=== PATIENT | male | born 1975 | race Caucasian/White ===

== ENCOUNTER 2016-10-04 06:00 | Observation (INO) | payer MEDICAID, OTHER ==
[2016-10-04] MEDS ORDERED: NS 1,000 ML IV ONE (06:18)
[2016-10-04] MEDS ORDERED: ONDANSETRON 4 MG/2 ML VIAL IVP ONE ×2 (06:18→08:00)
[2016-10-04 06:43] LABS: ADD MORPH? NO; ATYPICAL LYMPHOCYTE FLAG 0 (0-99); FRAGMENT RBC FLAG 0 (0-99); HEMATOCRIT 55.2 % (40.0-51.0); HEMOGLOBIN 19.7 g/dL (13.7-17.5); LIPEMIA HEMOLYSIS FLAG 90 (0-99); MEAN CELL HEMOGLOBIN 30.4 pg (27.9-34.1); MEAN CELL HEMOGLOBIN CONCENTR. 35.7 g/dL (32.4-36.7); MEAN CELL VOLUME 85.1 fL (81.5-99.8); MEAN PLATELET VOLUME 9.9 fL (8.7-11.7); PLATELET CLUMPS FLAG 20 (0-99); PLATELET COUNT 281 10^3/uL (150-400); RED BLOOD CELL COUNT 6.49 10^6/uL (4.40-6.38); RED CELL DISTRIBUTION WIDTH 12.4 % (11.5-15.2)
[2016-10-04 06:54] LABS: ALANINE AMINOTRANSFERASE 54 IU/L (21-72); ALBUMIN 5.5 g/dL (3.5-5.0); ALKALINE PHOSPHATASE 91 IU/L (38-126); ANION GAP 22 mEq/L (8-16); ASPARTATE AMINOTRANSFERASE 35 IU/L (17-59); BILIRUBIN,TOTAL 1.3 mg/dL (0.1-1.4); BILIRUBIN-CONJUGATED 0.6 mg/dL (0.0-0.5); BILIRUBIN-UNCONJUGATED 0.7 mg/dL (0.0-1.1); CALCIUM 10.8 mg/dL (8.5-10.4); CARBON DIOXIDE 16 mEq/l (22-31); CHLORIDE 104 mEq/L (97-110); CREATININE 0.9 mg/dL (0.7-1.3); GLOMERULAR FILTRATION RATE > 60; GLUCOSE 181 mg/dL (70-100); LITHIUM 0.8 mEq/L (0.6-1.2); POTASSIUM 3.1 mEq/L (3.5-5.2); SODIUM 142 mEq/L (134-144); TOTAL PROTEIN 9.2 g/dL (6.3-8.2)
--- NOTE | 2016-10-04 06:54 | EDPHY ---
H & P Stated Complaint: N/V, abd pain - Personal History Tetanus Vaccine Date: less than 10 years - Medical/Surgical History Hx Asthma: No Hx Chronic Respiratory Disease: No Hx Diabetes: No Hx Cardiac Disease: No Hx Renal Disease: No Hx Cirrhosis: No Hx Alcoholism: No Hx HIV/AIDS: No Hx Splenectomy or Spleen Trauma: No Other PMH: Bipolar,appy, torn achilles tendon L leg - Social History Smoking Status: Current every day smoker <Marquis Ho - Last Filed: 10/04/16 07:02> <Cm Echavarria - Last Filed: 10/04/16 12:39> Time Seen by Provider: 10/04/16 06:17 HPI/ROS: Chief Complaint: Nausea, vomiting, abdominal pain HPI: 41-year-old male presenting with 2 days of nausea, vomiting and abdominal pain. Patient states the pain is primarily in the left hand side. It is constant with no significant aggravating or alleviating factors. No fevers or chills. Has multiple episodes of nausea and vomiting is been able to keep any fluids down. Also having some diarrhea. No melena or hematochezia. No hematemesis. Does not have a history of the same. Has a past medical history of bipolar disorder does take lithium. Has been compliant with his medications. Denies any other ingestions. ROS: 10 point Review of Systems is negative except as noted in the HPI. PMH: Bipolar disorder Medications: [place] Allergies: No known drug allergies Social History: No smoking, no alcohol, no recreational drug use Family History: non-contributory Physical Exam: Gen: Awake, Alert, No Distress HEENT: Nose: no rhinorrhea Eyes: PERRLA, EOMI Mouth: Moist mucosa Neck: Supple, no JVD Chest: nontender, lungs clear to auscultation Heart: S1, S2 normal, no murmur Abd: Soft, patient has left lower quadrant greater than left upper quadrant tenderness to palpation with voluntary guarding, no right-sided abdominal tenderness Back: no CVA tenderness, no midline tenderness Ext: no edema, non-tender Skin: no rash Neuro: CN II-XII intact, Sensation grossly intact, Strength 5/5 in bilateral upper and lower extremities (Marquis Ho) Constitutional: Initial Vital Signs Temperature (C) 36.2 C 10/04/16 06:12 Heart Rate 104 H 10/04/16 06:12 Respiratory Rate 28 H 10/04/16 06:12 Blood Pressure 123/97 H 10/04/16 06:12 O2 Sat (%) 99 10/04/16 06:12 O2 Delivery Mode Room Air Allergies/Adverse Reactions: No Known Allergies Allergy (Verified 10/04/16 06:03) Home Medications: Medication Instructions Recorded NK [No Known Home Meds] 10/04/16 Medical Decision Making <Marquis Ho - Last Filed: 10/04/16 07:02> - Diagnostics Imaging: I viewed and interpreted images myself <Cm Echavarria - Last Filed: 10/04/16 12:39> - Diagnostics Imaging Results: Imaging Impressions Abdomen CT 10/04/16 06:18 Impression: Fluid-filled distention of small bowel, colon, and stomach suggestive of enteritis, without significant bowel dilatation. The study was performed as an emergency on-call case and discussed by telephone with Dr. Hamilton Schmitt at 7:52 AM hrs. The final interpretation is concordant with the original communication. ED Course/Re-evaluation: Leukocytosis noted. Patient is signed out to Dr. Echavarria pending CT scan of the abdomen and pelvis. (Marquis Ho) Other Provider: I assumed care of the patient at 7 o'clock in the morning awaiting CT scan of the abdomen pelvis. CT scan of the abdomen pelvis demonstrates changes consistent with gastroenteritis. No diverticulitis, perforation abscess or other acute finding or noted. I re-evaluated the patient at 8:30 a.m.. He continues to have ongoing vomiting. He is unable to tolerate any oral rehydration. The patient will require admission to the hospital. I have ordered a GI panel PCR on the patient 's stool which has yet to be provided. Consultation is made with the hospitalist service at 8:35 a.m.. The patient will be admitted for observation status to the [facility]. The patient will be admitted to the hospital by Dr. Jairo Gracia (Cm Echavarria) - Data Points Laboratory Results: Laboratory Results 10/04/16 06:30 10/04/16 06:30 10/04/16 10/04/16 06:30 06:30 WBC 17.45 10^3/uL H 10^3/uL (3.80-9.50) RBC 6.49 10^6/uL H 10^6/uL (4.40-6.38) Hgb 19.7 g/dL H g/dL (13.7-17.5) Hct 55.2 % H % (40.0-51.0) MCV 85.1 fL fL (81.5-99.8) MCH 30.4 pg pg (27.9-34.1) MCHC 35.7 g/dL g/dL (32.4-36.7) RDW 12.4 % % (11.5-15.2) Plt Count 281 10^3/uL 10^3/uL (150-400) MPV 9.9 fL fL (8.7-11.7) Neut % (Auto) Not Reported Lymph % (Auto) Not Reported [place] % (Auto) Not Reported Eos % (Auto) Not Reported Baso % (Auto) Not Reported Nucleat RBC Rel Count 0.0 % % (0.0-0.2) Absolute Neuts (auto) Not Reported Absolute Lymphs (auto) Not Reported Absolute Monos (auto) Not Reported Absolute Eos (auto) Not Reported Absolute Basos (auto) Not Reported Absolute Nucleated RBC 0.00 10^3/uL 10^3/uL (0-0.01) Immature Gran % Not Reported Seg Neutrophils % 44 % % Band Neutrophils % 37 % % Lymphocytes % 9 % % Monocytes % 9 % % Immature Gran # Not Reported Absolute Seg Neuts 7.68 10^/uL H 10^/uL (1.70-6.50) Absolute Band Neuts 6.46 10^3/uL H 10^3/uL (0.00-0.70) Absolute Lymphocytes 1.57 10^3/uL 10^3/uL (1.00-3.00) Absolute Monocytes 1.57 10^3/uL H 10^3/uL (0.30-0.80) RBC/WBC/PLT Morphology NORMAL (NORMAL) Platelet Estimate ADEQUATE (ADEQ) Sodium 142 mEq/L mEq/L (134-144) Potassium 3.1 mEq/L L mEq/L (3.5-5.2) Chloride 104 mEq/L mEq/L (97-110) Carbon Dioxide 16 mEq/l L mEq/l (22-31) Anion Gap 22 mEq/L H mEq/L (8-16) BUN 24 mg/dL H mg/dL (7-23) Creatinine 0.9 mg/dL mg/dL (0.7-1.3) Estimated GFR > 60 Glucose 181 mg/dL H mg/dL (70-100) Calcium 10.8 mg/dL H mg/dL (8.5-10.4) Phosphorus 3.3 mg/dL mg/dL (2.5-4.5) Total Bilirubin 1.3 mg/dL mg/dL (0.1-1.4) Conjugated Bilirubin 0.6 mg/dL H mg/dL (0.0-0.5) Unconjugated Bilirubin 0.7 mg/dL mg/dL (0.0-1.1) AST 35 IU/L IU/L (17-59) ALT 54 IU/L IU/L (21-72) Alkaline Phosphatase 91 IU/L IU/L (38-126) Total Protein 9.2 g/dL H g/dL (6.3-8.2) Albumin 5.5 g/dL H g/dL (3.5-5.0) Lipase 78.0 IU/L IU/L (23-300) [place] 0.8 mEq/L mEq/L (0.6-1.2) Medications Given: Discontinued Medications Sodium Chloride (Ns) 1,000 mls @ 0 mls/hr IV ONCE ONE PRN Reason: [place] Stop: 10/04/16 06:19 Last Admin: 10/04/16 06:35 Dose: 1,000 mls Ketorolac Tromethamine (Toradol) 15 mg IVP EDNOW ONE Stop: 10/04/16 08:01 Last Admin: 10/04/16 08:01 Dose: 15 mg Ondansetron HCl (Zofran) 4 mg IVP EDNOW ONE Stop: 10/04/16 06:19 Last Admin: 10/04/16 06:36 Dose: 4 mg Ondansetron HCl (Zofran) 4 mg IVP EDNOW ONE Stop: 10/04/16 08:01 Last Admin: 10/04/16 08:01 Dose: 4 mg Departure <Marquis Ho - Last Filed: 10/04/16 07:02> <Cm Echavarria - Last Filed: 10/04/16 12:39> - Departure Disposition: [facility] Clinical Impression: Dehydration, Acute gastroenteritis Condition: Good Referrals: NONE *PRIMARY CARE P,. [Primary Care Provider] - As per Instructions
[2016-10-04 06:56] LABS: ADD DIFF? YES; ADD SCAN? NO; LEFT SHIFT FLG 100 (0-99)
[2016-10-04] MEDS ORDERED: IOPAMIDOL (ISOVUE-300) 100 ML BTL IV ONE (06:59)
[2016-10-04 07:47] LABS: PLATELET ESTIMATE ADEQUATE (ADEQ)
[2016-10-04] MEDS ORDERED: ONDANSETRON 4 MG/2 ML VIAL ONE (07:50)
[2016-10-04] MEDS ORDERED: KETOROLAC 15 MG/1 ML SDV ONE (07:51)
[2016-10-04] MEDS ORDERED: KETOROLAC 15 MG/1 ML SDV IVP ONE (08:00)
[2016-10-04 09:17] VITALS: BP 120/85; PULSE 92; RESP 18; TEMP 98.8; O2SAT 94
[2016-10-04] MEDS ORDERED: PROTOCOL POTASSIUM 1 DOSE MISC PRN (10:20)
[2016-10-04] MEDS ORDERED: NS 1,000 ML IV SCH (10:30)
[2016-10-04] MEDS ORDERED: ONDANSETRON DISINTEGRATING 4 MG TAB PO PRN (11:02)
[2016-10-04] MEDS ORDERED: IBUPROFEN 200 MG TAB PO PRN (11:02)
[2016-10-04] MEDS ORDERED: ONDANSETRON 4 MG/2 ML VIAL IVP PRN (11:02)
[2016-10-04] MEDS ORDERED: ACETAMINOPHEN 325 MG TAB PO PRN (11:02)
[2016-10-04] MEDS ORDERED: NICOTINE 21 MG/24 HR PATCH TD SCH (11:30)
--- NOTE | 2016-10-04 11:57 | GHP ---
[f rep st] HISTORY AND PHYSICAL DATE OF ADMISSION: 10/04/2016 CHIEF COMPLAINT: Persistent vomiting and nausea, with associated back pain. HISTORY OF PRESENT ILLNESS: The patient is a 41-year-old male with a history of bipolar disorder, history of an appendectomy, and cannibas use, who presented to the emergency room with nausea and vomiting. He has not been able to eat or drink for approximately 2 days. He has had persistent bouts of diarrhea. This is a chronic condition for him but is more frequent. He describes having some hematemesis. He has had 15-16 episodes of vomiting. He does not have any fever. He says he has chronic chills. No one is ill at home. He has had no recent travel. He has not recently been on antibiotics. He uses cannabis daily. He uses approximately a bowl or 2 a day. During my interview, he is complaining of severe back pain in the left lower back area. He also is describing that he is having some associated chest tightness. What has helped his symptoms is the medications he received in the emergency room. He thinks a warm shower may have helped with his nausea and vomiting. During my interview, he is complaining of ongoing left low back pain. PAST MEDICAL HISTORY: 1. Bipolar disorder, on lithium. 2. History of chronic narcotic use. Has been sober for 6 years. PAST SURGICAL HISTORY: 1. Appendectomy in July of 2012. 2. Status post debridement and fasciotomy for a left forearm impending compartment syndrome. SOCIAL HISTORY: He has been x8 years. He has 3 children. He works at [employer]. He smokes approximately a pack a day of cigarettes for the past 10-15 years. He has had a problem with cocaine and crack and alcohol use. He has quit all of these 6 years ago. He uses cannabis daily and describes using a bowl or 2. FAMILY HISTORY: Both of his parents have issues with narcotic dependency. ALLERGIES: No known allergies. MEDICATIONS: [place] 1200 mg p.o. q.h.s. REVIEW OF SYSTEMS: A 10-point review of systems was performed and was negative , other than pertinent positives in HPI and Past Medical History. PHYSICAL EXAM: GENERAL: The patient is a 41-year-old male who appears uncomfortable during my interview, but appears also to be in good health. VITAL SIGNS: Blood pressure is 120/85. Heart rate is 92. Respiratory rate is 18. O2 saturation on room air is 94%. Temperature is 37.1 Celsius. EYES: Pupils are equal and reactive. EOMs are intact. No conjunctival injection noted. ENT: Normal ears, hearing intact. Normal lips and teeth. Oral airway is intact. NECK: Trachea is in midline. CARDIOVASCULAR: He is in a regular rate and rhythm. No murmurs, rubs, or gallops noted. CHEST/LUNGS: Normal respiratory effort, without wheezing, rales or rhonchi. ABDOMEN: Soft, nontender. SKIN: No rashes or ulcer noted. Warm, dry and intact. He has multiple tattoos. MUSCULOSKELETAL: He is moving his upper and lower extremities without difficulty. PSYCHIATRIC: He is alert and oriented, very anxious, appears to have normal judgment, insight, and normal memory. LABORATORY DATA: Data reviewed. A CBC was performed. White blood cell count is 17.45, RBC 6.49. Hemoglobin is 19.7. Hematocrit is 55.2. Chemistry: Sodium is 142, potassium 3.1, CO2 of 16, BUN of 24, creatinine of 0.9, glucose of 181, calcium of 10.8. [place] level was checked, which is 0.8. A CT of the abdomen was performed, which showed fluid-filled distention of small bowel, colon, and stomach, suggestive of enteritis without significant bowel dilation. ASSESSMENT/PLAN: 1. Likely viral gastroenteritis. Will give him supportive treatment with IV fluids and antiemetics. 2. Left lower back pain. Will check a urinalysis (he has flank pain during my evaluation) for further evaluation. I explained to him that I would not order narcotics. Anti-inflammatories will be ordered. Will ask Physical Therapy to see him. 3. Episode of chest discomfort. Will check a troponin. 4. Dehydration with associated polycythemia. Will hydrate and follow. 5. Metabolic acidosis. Secondary to dehydration. 6. Hyperglycemia, stress induced. 7. Hypokalemia. Placed on the protocol. 8. Nicotine dependence. Nicotine patch ordered. 9. Cannabis use. He could have an underlying hyperemesis syndrome. Reviewed this with the patient, that frequent use of cannabis daily can result in chronic vomiting. 10. Elevated calcium. Will recheck. 11. Length of stay: He will likely require less than a 2-midnight stay, which will make him observation status. This can be re-evaluated if needed. CODE STATUS: Full. /[id number]/MODL MTDD
[2016-10-04] MEDS ORDERED: POTASSIUM CL 10 MEQ TAB PO ONE (12:48)
[2016-10-04] MEDS ORDERED: CALCIUM CARBONATE 500 MG CHEWABLE TAB PO PRN (14:04)
--- NOTE | 2016-10-04 16:45 | PDDCSUM ---
Discharge Summary Discharge Summary: Dates of service: admit/discharge 10/04/16 Procedures: abd ct consultations: none Hospital course by problem: # n/v: no further episodes of vomiting since 6am, abd CT personally reviewed and noted to be suggestive of acute enteritis without other acute issues. Suspect viral in nature. Tolerating diet without recurrent sxs. No abd pain. Will dc home with prn zofran and have patient f/u with pcp. # polycythemia: in setting of significant n/v and likely related to same, has gotten IVF and would recommend f/u with PCP for re eval in coming week # agma: in setting of n/v and hypovolemia and likely related to same, non toxic appearing, f/u for routine lab eval in coming week # bipolar: continue lithium # hx of opiate abuse: in remission Dc home > 35 min spent in dc more than half in coordination of care Patient new to my care. Care plan reviewed with DANA Patterson. Old records reviewed and summarized as above.
== END 2016-10-04 17:00 | disposition home or self-care (01) ==
LOC: F1N 10:10
PROVIDERS: ADMIT Internal Medicine; ATTEND Internal Medicine
DX: R11.2 Nausea with vomiting, unspecified (principal); D75.1 Secondary polycythemia; F31.9 Bipolar disorder, unspecified; F12.10 Cannabis abuse, uncomplicated; F11.21 Opioid dependence, in remission; F17.210 Nicotine dependence, cigarettes, uncomplicated
CPT/HCPCS: 74177; G0378; 96374; J1885; J2405; Q9967

== ENCOUNTER 2018-09-18 09:03 | Emergency (ER) | payer OTHER ==
[2018-09-18] MEDS ORDERED: ASPIRIN 81 MG CHEWABLE TAB PO ONE (09:14)
[2018-09-18] MEDS ORDERED: NS 500 ML IV ONE (09:14)
--- NOTE | 2018-09-18 09:15 | EDPHY ---
H & P Stated Complaint: cp Time Seen by Provider: 09/18/18 09:11 HPI/ROS: HPI: This is a 43-year-old male who presents with Chief Complaint: Chest pain Location: Anterior left-sided chest Quality: Pain Duration: 4 days Signs and Symptoms: no shortness of breath at rest, + shortness of breath on exertion, no cough, no chest pain, no palpitations, no lower extremity edema, no wheezing, no orthopnea, no paroxysmal nocturnal dyspnea, no fever, no injury/ trauma, no hemoptysis, no carpal pedal spasms, + cardiac awareness Timing: Acute, intermittent episodes occurring approximately 5-6 times per day Severity: [id number] Context: Patient is a heavy tobacco user, previous alcohol/drug abuser with sobriety for the last 7 years, 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 Patient reports that nothing makes the pain better or worse. Patient is right-hand dominant but reports that the pain is reproducible when he touches the left side of his chest. States that this feels different than his "stomach issues he had when he drank every day." No recent foreign travel or long distance travel. Patient does complain of cardiac awareness and anxiety. Father hx CABG in late 40s. Denies fever, cough , shortness of breath, lower extremity edema. Patient reports that he decided to come into the emergency room today for further evaluation as the left-sided chest pain was "worse" this morning when compared to the other few days. Modifying Factors: None Comment: ROS: A comprehensive 10 system review of systems is otherwise negative aside from elements mentioned in the history of present illness. MEDICAL/SURGICAL/SOCIAL HISTORY: Medical history: Bipolar, drug/ETOH abuse Surgical history: Appendectomy, left Achilles tendon repair Social history: Has children. Employed. CONSTITUTIONAL: Slightly anxious, polite and cooperative, middle-aged white male, awake and alert, no obvious distress HEENT: Atraumatic and normocephalic, PERRL, EOMI. Nares patent; no rhinorrhea; no nasal mucosal edema. Tympanic membranes clear. Oropharynx clear, no exudate and moist pink mucosa. Airway patent. No lymphadenopathy. No meningismus. Cardiovascular: Normal S1/S2, regular rate, regular rhythm, without murmur rub or gallop. PULMONARY/CHEST: Symmetrical and reproducible anterior generalized chest tenderness. Clear to auscultation bilaterally. Good air movement. No accessory muscle usage. ABDOMEN: Soft, nondistended, nontender, no rebound, no guarding, no peritoneal signs, no masses or organomegaly. No CVAT. EXTREMITIES: 2/2 pulses, strength 5/5, no deformities, no clubbing, no cyanosis or edema. Negative Homans sign. NEUROLOGICAL: no focal neuro deficits. GCS 15. SKIN: Warm and dry, no erythema. no rash. Good capillary refill. Source: Patient Exam Limitations: No limitations - Personal History Current Tetanus/Diphtheria Vaccine: Yes Current Tetanus Diphtheria and Acellular Pertussis (TDAP): Yes Tetanus Vaccine Date: less than 10 years - Medical/Surgical History Hx Asthma: No Hx Chronic Respiratory Disease: No Hx Diabetes: No Hx Cardiac Disease: No Hx Renal Disease: No Hx Cirrhosis: No Hx Alcoholism: Yes Hx HIV/AIDS: No Hx Splenectomy or Spleen Trauma: No Other PMH: Bipolar,appy, torn achilles tendon L leg, drug/ETOH abuse - Social History Smoking Status: Current every day smoker Constitutional: Initial Vital Signs Temperature (C) 36.5 C 09/18/18 09:06 Heart Rate 67 09/18/18 09:06 Respiratory Rate 16 09/18/18 09:06 Blood Pressure 147/112 H 09/18/18 09:06 O2 Sat (%) 97 09/18/18 09:06 O2 Delivery Mode Room Air Allergies/Adverse Reactions: No Known Allergies Allergy (Verified 09/18/18 09:05) Home Medications: Medication Instructions Recorded Binger Carbonate [Binger 1,200 mg PO HS 10/04/16 Carbonate Cap 300 mg (*)] Atorvastatin Calcium 09/18/18 Medical Decision Making - Diagnostics EKG Interpretation: 12 lead EKG: Indication: Chest pain Rhythm: Normal sinus rhythm [place]: Normal Intervals: Normal QRS: Incomplete right bundle branch block ST segments: Normal INTERPRETATION: Normal EKG The 12 lead EKG was interpreted by myself and with attending. Imaging Results: Imaging Impressions Chest X-Ray 09/18/18 09:15 Impression: Minimal central peribronchial thickening, similar to the prior study, which could be related to bronchitis/airways disease. ED Course/Re-evaluation: Vital signs reviewed and show mildly elevated systolic and diastolic pressures. Placed on manager psychiatry. EKG my read shows normal sinus rhythm with a rate of 66 beats per minute with incomplete right bundle branch block but no acute ischemic changes. IV access, laboratory studies, chest x-ray ordered Given aspirin upon arrival. 0938: Notified by [facility] that troponin 0.00 0942: Chest x-ray my read shows no opacity, no effusion, no pneumothorax, no widened mediastinum. Radiology read shows + Minimal central peribronchial thickening, similar to the prior study, which could be related to bronchitis/ airways disease. 0943: Laboratory studies reviewed and show WBC 11 K, no anemia, no platelet dysfunction, no cake apathy, electrolyte imbalance, no signs of pancreatitis, no elevated liver enzymes, no acute kidney injury, no VTE. Lipase is mildly elevated but no epigastric pain. History of alcohol abuse but sober x7 years. 1012: Reassessed patient who reports that he is completely pain-free. Chest pain started 4 days ago and 2nd troponin not needed. He reports that this is likely stress induced and asking to be discharged home. Reports that he will follow up with his primary care provider for risk factor modification including fasting lipid panel. He reports that he and his significant other are going to stop smoking. I did give him a work excuse for the next 2 days. 1015: Vital signs stable at discharge HEART score=1; low risk I reviewed the share decision making instrument with the patient, including risk of MACE, and the patient (and family) that are in agreement with the chosen disposition. This patient was seen under the supervision of my secondary supervising physician. I evaluated care for this patient with attending. Differential Diagnosis: Chest pain including but not limited to myocardial ischemia, pulmonary embolus, chest wall pain, pleural inflammation and pulmonary infectious causes. - Data Points Laboratory Results: Laboratory Results 09/18/18 09:24 09/18/18 09:24 09/18/18 09/18/18 09/18/18 09:25 09:24 09:24 WBC RBC Hgb Hct MCV MCH MCHC RDW Plt Count MPV Neut % (Auto) Lymph % (Auto) [place] % (Auto) Eos % (Auto) Baso % (Auto) Nucleat RBC Rel Count Absolute Neuts (auto) Absolute Lymphs (auto) Absolute Monos (auto) Absolute Eos (auto) Absolute Basos (auto) Absolute Nucleated RBC Immature Gran % Immature Gran # PT 12.6 SEC SEC (12.0-15.0) INR 0.98 (0.83-1.16) APTT 29.2 SEC SEC (23.0-38.0) D-Dimer < 0.27 ug/mLFEU ug/mLFEU (0.00-0.50) Sodium 138 mEq/L mEq/L (135-145) Potassium 4.1 mEq/L mEq/L (3.5-5.2) Chloride 110 mEq/L mEq/L (97-110) Carbon Dioxide 20 mEq/l L mEq/l (22-31) Anion Gap 8 mEq/L mEq/L (6-14) BUN 13 mg/dL mg/dL (7-23) Creatinine 0.7 mg/dL mg/dL (0.7-1.3) Estimated GFR > 60 Glucose 110 mg/dL H mg/dL (70-100) Calcium 9.5 mg/dL mg/dL (8.5-10.4) Total Bilirubin 0.5 mg/dL mg/dL (0.1-1.4) Conjugated Bilirubin 0.2 mg/dL mg/dL (0.0-0.5) Unconjugated Bilirubin 0.3 mg/dL mg/dL (0.0-1.1) AST 23 IU/L IU/L (17-59) ALT 49 IU/L IU/L (21-72) Alkaline Phosphatase 63 IU/L IU/L (38-126) POC Troponin I 0.00 ng/mL ng/mL (0.00-0.08) Total Protein 6.8 g/dL g/dL (6.3-8.2) Albumin 4.5 g/dL g/dL (3.5-5.0) Lipase 396 IU/L H IU/L (23-300) 09/18/18 09:24 WBC 10.79 10^3/uL H 10^3/uL (3.80-9.50) RBC 5.19 10^6/uL 10^6/uL (4.40-6.38) Hgb 15.8 g/dL g/dL (13.7-17.5) Hct 45.3 % % (40.0-51.0) MCV 87.3 fL fL (81.5-99.8) MCH 30.4 pg pg (27.9-34.1) MCHC 34.9 g/dL g/dL (32.4-36.7) RDW 13.1 % % (11.5-15.2) Plt Count 247 10^3/uL 10^3/uL (150-400) MPV 10.0 fL fL (8.7-11.7) Neut % (Auto) 57.2 % % (39.3-74.2) Lymph % (Auto) 32.3 % % (15.0-45.0) [place] % (Auto) 8.2 % % (4.5-13.0) Eos % (Auto) 1.4 % % (0.6-7.6) Baso % (Auto) 0.4 % % (0.3-1.7) Nucleat RBC Rel Count 0.0 % % (0.0-0.2) Absolute Neuts (auto) 6.19 10^3/uL 10^3/uL (1.70-6.50) Absolute Lymphs (auto) 3.48 10^3/uL H 10^3/uL (1.00-3.00) Absolute Monos (auto) 0.88 10^3/uL H 10^3/uL (0.30-0.80) Absolute Eos (auto) 0.15 10^3/uL 10^3/uL (0.03-0.40) Absolute Basos (auto) 0.04 10^3/uL 10^3/uL (0.02-0.10) Absolute Nucleated RBC 0.00 10^3/uL 10^3/uL (0-0.01) Immature Gran % 0.5 % % (0.0-1.1) Immature Gran # 0.05 10^3/uL 10^3/uL (0.00-0.10) PT INR APTT D-Dimer Sodium Potassium Chloride Carbon Dioxide Anion Gap BUN Creatinine Estimated GFR Glucose Calcium Total Bilirubin Conjugated Bilirubin Unconjugated Bilirubin AST ALT Alkaline Phosphatase POC Troponin I Total Protein Albumin Lipase Medications Given: Discontinued Medications Aspirin (Aspirin) 324 mg PO EDNOW ONE Stop: 09/18/18 09:15 Last Admin: 09/18/18 09:18 Dose: 324 mg Sodium Chloride (Ns) 500 mls @ 1,000 mls/hr IV EDNOW ONE PRN Reason: Protocol Stop: 09/18/18 09:43 Last Admin: 09/18/18 09:18 Dose: 500 mls Point of Care Test Results: Chemistry 09/18/18 09:25 POC Troponin I 0.00 ng/mL ng/mL (0.00-0.08) Departure - Departure Disposition: Home, Routine, Self-Care Clinical Impression: Atypical chest pain, Tobacco user Reactive airway disease Qualifiers: Asthma severity: mild Asthma persistence: intermittent Asthma complication type : uncomplicated Qualified Code(s): J45.20 - Mild intermittent asthma, uncomplicated Condition: Good Instructions: Reactive Airways Disease (ED), Chest Pain (ED) Additional Instructions: Laboratory studies and EKG today show that you are not having a heart attack. You do need to follow-up with your primary care provider for fasting lipid panel and other risk factor modifications. It would be beneficial to follow up with Cardiology to evaluate if you are candidate for nuclear stress test. Please continue to refrain from using alcohol and drugs. Please consider tobacco cessation. Practice relaxation and stress reduction techniques. Return to the ER immediately if you experience new, continued or worsened chest pain, chest pain that radiates, chest pain accompanied by exertion or associated with shortness of breath, sweating, nausea, dizziness, back pain, or any other symptoms that concern you. Referrals: Kamila Freeman DO [Primary Care Provider] - As per Instructions Gatito Amador MD [Medical Doctor] - As per Instructions Stand Alone Forms: Work Excuse
[2018-09-18 09:35] LABS: PLATELET COUNT 247 10^3/uL (150-400)
[2018-09-18 09:43] LABS: INR 0.98 (0.83-1.16); PROTIME(PATIENT) 12.6 SEC (12.0-15.0)
[2018-09-18 10:39] VITALS: BP 108/69
== END 2018-09-18 10:36 | disposition home or self-care (01) ==
DX: R07.9 Chest pain, unspecified (principal); J45.20 Mild intermittent asthma, uncomplicated; E86.9 Volume depletion, unspecified; F17.200 Nicotine dependence, unspecified, uncomplicated
CPT/HCPCS: 84484-ER